=== PATIENT | male | born 1985 | race Caucasian/White ===

== ENCOUNTER 2018-02-24 21:37 | Inpatient (IN) | payer OTHER ==
[2018-02-24 22:20] LABS: BASO # 0.1 10^3/uL (0.0-0.2); BASO % 0.6 % (0.0-1.0); EOS % 0.1 % (0.0-3.0); HEMATOCRIT 39.9 % (42.0-52.0); HEMOGLOBIN 13.7 g/dl (13.5-17.5); IMMATURE GRANULOCYTE % 0.2 % (0-3.0); LYMPH # 1.2 10^3/uL (1.5-4.5); LYMPH % 15.1 % (24.0-44.0); MEAN CORPUSCULAR HEMOGLOBIN 30.9 pg (27.0-33.0); MEAN CORPUSCULAR HGB CONC 34.3 g/dl (32.0-36.5); MEAN CORPUSCULAR VOLUME 89.9 fl (80.0-96.0); MONO # 0.7 10^3/uL (0.0-0.8); MONO % 8.4 % (0.0-5.0); NEUTROPHILS # 6.2 10^3/uL (1.8-7.7); NEUTROPHILS % 75.6 % (36.0-66.0); PLATELET COUNT, AUTOMATED 179 10^3/uL (150-450); RED BLOOD COUNT 4.44 10^6/uL (4.30-6.10); RED CELL DISTRIBUTION WIDTH 12.3 % (11.5-14.5); WHITE BLOOD COUNT 8.2 10^3/uL (4.0-10.0)
[2018-02-24] MEDS: ONDANSETRON 4MG/2ML VIAL (J2405) IV (22:26)
[2018-02-24] MEDS: NS 1,000 ML IV (22:26)
[2018-02-24] MEDS: MORPHINE 2 MG/ML 1ML SYRINGE (J2270) IV (22:27)
[2018-02-24 22:53] LABS: ALBUMIN 4.2 GM/DL (3.2-5.2); ALKALINE PHOSPHATASE 106 U/L (45-117); ALT/SGPT 38 U/L (12-78); AMYLASE 246 U/L (25-115); ANION GAP 7 MEQ/L (8-16); AST/SGOT 44 U/L (7-37); BILIRUBIN,DIRECT < 0.1 MG/DL (0.0-0.2); BILIRUBIN,TOTAL 0.3 MG/DL (0.2-1.0); BLOOD UREA NITROGEN 7 MG/DL (7-18); CALCIUM LEVEL 8.3 MG/DL (8.5-10.1); CARBON DIOXIDE LEVEL 34 MEQ/L (21-32); CHLORIDE LEVEL 99 MEQ/L (98-107); CREATININE FOR GFR 0.66 MG/DL (0.70-1.30); ETHYL ALCOHOL (ETHANOL) 0.227 % (0.000-0.010); GLOMERULAR FILTRATION RATE > 60.0 (>60); GLUCOSE, FASTING 123 MG/DL (70-100); LIPASE 1384 U/L (73-393); SODIUM LEVEL 140 MEQ/L (136-145); TOTAL PROTEIN 7.7 GM/DL (6.4-8.2)
[2018-02-24] MEDS: OXAZEPAM 15 MG CAP PO (23:35)
[2018-02-24] MEDS: LORazepam 2 MG/ML VIAL (J2060) IV (23:35)
[2018-02-25] MEDS: NS 1,000 ML IV ×5 (00:12→21:48)
[2018-02-25] MEDS: MORPHINE 2 MG/ML 1ML SYRINGE (J2270) IV (00:19)
[2018-02-25] MEDS ORDERED: PERCOCET 5MG/325MG TAB PO (00:45)
[2018-02-25] MEDS ORDERED: ACETAMINOPHEN TAB 650MG DOSE (2X325MG) PO (00:45)
[2018-02-25] MEDS: MORPHINE 4 MG/ML 1ML VIAL/SYRINGE (J2270) IV ×4 (02:27→22:12)
[2018-02-25] MEDS: LORazepam 2 MG/ML VIAL (J2060) IV (06:01)
[2018-02-25 06:03] LABS: RED BLOOD COUNT 3.83 10^6/uL (4.30-6.10); WHITE BLOOD COUNT 5.6 10^3/uL (4.0-10.0)
[2018-02-25 06:04] LABS: BASO # 0.1 10^3/uL (0.0-0.2); BASO % 1.1 % (0.0-1.0); EOS # 0.1 10^3/uL (0.0-0.50); EOS % 1.6 % (0.0-3.0); HEMATOCRIT 34.7 % (42.0-52.0); IMMATURE GRANULOCYTE % 0.2 % (0-3.0); LYMPH # 1.7 10^3/uL (1.5-4.5); LYMPH % 29.5 % (24.0-44.0); MEAN CORPUSCULAR HEMOGLOBIN 31.3 pg (27.0-33.0); MEAN CORPUSCULAR HGB CONC 34.6 g/dl (32.0-36.5); MEAN CORPUSCULAR VOLUME 90.6 fl (80.0-96.0); MONO # 0.6 10^3/uL (0.0-0.8); NEUTROPHILS # 3.2 10^3/uL (1.8-7.7); NEUTROPHILS % 56.6 % (36.0-66.0); PLATELET COUNT, AUTOMATED 153 10^3/uL (150-450); RED CELL DISTRIBUTION WIDTH 12.4 % (11.5-14.5)
[2018-02-25 06:37] LABS: ANION GAP 7 MEQ/L (8-16); BLOOD UREA NITROGEN 5 MG/DL (7-18); CALCIUM LEVEL 7.8 MG/DL (8.5-10.1); CARBON DIOXIDE LEVEL 31 MEQ/L (21-32); CHLORIDE LEVEL 106 MEQ/L (98-107); GLOMERULAR FILTRATION RATE > 60.0 (>60); GLUCOSE, FASTING 77 MG/DL (70-100); LIPASE 680 U/L (73-393); POTASSIUM SERUM 4.2 MEQ/L (3.5-5.1); SODIUM LEVEL 144 MEQ/L (136-145)
[2018-02-25] MEDS: OXAZEPAM 15 MG CAP PO ×3 (07:02→18:03)
[2018-02-25] MEDS: PANTOPRAZOLE 40MG INJ (PROTONIX) (C9113) IV (09:56)
[2018-02-25] MEDS: ENOXAPARIN 40 MG/0.4 ML SYRINGE (J1650) SC (09:57)
[2018-02-26] MEDS: OXAZEPAM 15 MG CAP PO ×4 (00:08→17:25)
[2018-02-26] MEDS: MORPHINE 4 MG/ML 1ML VIAL/SYRINGE (J2270) IV ×3 (00:30→12:16)
[2018-02-26 05:50] LABS: HEMATOCRIT 39.4 % (42.0-52.0); HEMOGLOBIN 13.5 g/dl (13.5-17.5); MEAN CORPUSCULAR HGB CONC 34.3 g/dl (32.0-36.5); MEAN CORPUSCULAR VOLUME 90.6 fl (80.0-96.0); PLATELET COUNT, AUTOMATED 183 10^3/uL (150-450); RED BLOOD COUNT 4.35 10^6/uL (4.30-6.10); WHITE BLOOD COUNT 4.9 10^3/uL (4.0-10.0)
[2018-02-26] MEDS: NS 1,000 ML IV ×3 (05:59→18:19)
[2018-02-26 06:08] LABS: ALBUMIN 3.5 GM/DL (3.2-5.2); ALBUMIN/GLOBULIN RATIO 1.03 (1.00-1.93); ALKALINE PHOSPHATASE 83 U/L (45-117); ALT/SGPT 32 U/L (12-78); ANION GAP 5 MEQ/L (8-16); AST/SGOT 38 U/L (7-37); BILIRUBIN,TOTAL 0.8 MG/DL (0.2-1.0); BLOOD UREA NITROGEN 2 MG/DL (7-18); CALCIUM LEVEL 8.7 MG/DL (8.5-10.1); CARBON DIOXIDE LEVEL 35 MEQ/L (21-32); CHLORIDE LEVEL 104 MEQ/L (98-107); CREATININE FOR GFR 0.62 MG/DL (0.70-1.30); GLOMERULAR FILTRATION RATE > 60.0 (>60); GLUCOSE, FASTING 85 MG/DL (70-100); SODIUM LEVEL 144 MEQ/L (136-145); TOTAL PROTEIN 6.9 GM/DL (6.4-8.2)
[2018-02-26 07:12] LABS: LIPASE 330 U/L (73-393)
[2018-02-26] MEDS: ENOXAPARIN 40 MG/0.4 ML SYRINGE (J1650) SC (09:48)
[2018-02-26] MEDS: PANTOPRAZOLE 40MG INJ (PROTONIX) (C9113) IV (09:49)
[2018-02-27] MEDS: OXAZEPAM 15 MG CAP PO ×4 (00:17→21:10)
[2018-02-27] MEDS: NS 1,000 ML IV ×2 (00:18→06:17)
[2018-02-27 05:59] LABS: HEMATOCRIT 36.6 % (42.0-52.0); HEMOGLOBIN 12.7 g/dl (13.5-17.5); MEAN CORPUSCULAR HEMOGLOBIN 31.4 pg (27.0-33.0); MEAN CORPUSCULAR HGB CONC 34.7 g/dl (32.0-36.5); MEAN CORPUSCULAR VOLUME 90.6 fl (80.0-96.0); PLATELET COUNT, AUTOMATED 186 10^3/uL (150-450); RED BLOOD COUNT 4.04 10^6/uL (4.30-6.10); RED CELL DISTRIBUTION WIDTH 11.9 % (11.5-14.5); WHITE BLOOD COUNT 5.1 10^3/uL (4.0-10.0)
[2018-02-27 06:23] LABS: ALBUMIN 3.2 GM/DL (3.2-5.2); ALKALINE PHOSPHATASE 103 U/L (45-117); ALT/SGPT 32 U/L (12-78); ANION GAP 5 MEQ/L (8-16); AST/SGOT 39 U/L (7-37); BILIRUBIN,TOTAL 0.3 MG/DL (0.2-1.0); BLOOD UREA NITROGEN 2 MG/DL (7-18); CALCIUM LEVEL 8.4 MG/DL (8.5-10.1); CARBON DIOXIDE LEVEL 34 MEQ/L (21-32); CHLORIDE LEVEL 107 MEQ/L (98-107); CREATININE FOR GFR 0.58 MG/DL (0.70-1.30); GLOMERULAR FILTRATION RATE > 60.0 (>60); GLUCOSE, FASTING 108 MG/DL (70-100); POTASSIUM SERUM 3.9 MEQ/L (3.5-5.1); SODIUM LEVEL 146 MEQ/L (136-145); TOTAL PROTEIN 6.4 GM/DL (6.4-8.2)
[2018-02-27] MEDS: PANTOPRAZOLE 40MG INJ (PROTONIX) (C9113) IV (08:15)
[2018-02-27] MEDS: ENOXAPARIN 40 MG/0.4 ML SYRINGE (J1650) SC (08:16)
[2018-02-27] MEDS: ONDANSETRON 4MG/2ML VIAL (J2405) IV (11:27)
[2018-02-28 05:47] LABS: HEMATOCRIT 38.3 % (42.0-52.0); HEMOGLOBIN 13.1 g/dl (13.5-17.5); MEAN CORPUSCULAR HGB CONC 34.2 g/dl (32.0-36.5); MEAN CORPUSCULAR VOLUME 90.8 fl (80.0-96.0); PLATELET COUNT, AUTOMATED 209 10^3/uL (150-450); RED BLOOD COUNT 4.22 10^6/uL (4.30-6.10); WHITE BLOOD COUNT 5.2 10^3/uL (4.0-10.0)
[2018-02-28] MEDS: OXAZEPAM 15 MG CAP PO (06:05)
[2018-02-28 06:07] LABS: ALBUMIN 3.4 GM/DL (3.2-5.2); ALBUMIN/GLOBULIN RATIO 0.94 (1.00-1.93); ALKALINE PHOSPHATASE 112 U/L (45-117); ALT/SGPT 32 U/L (12-78); ANION GAP 7 MEQ/L (8-16); AST/SGOT 32 U/L (7-37); BILIRUBIN,TOTAL 0.2 MG/DL (0.2-1.0); BLOOD UREA NITROGEN 5 MG/DL (7-18); CALCIUM LEVEL 8.1 MG/DL (8.5-10.1); CARBON DIOXIDE LEVEL 34 MEQ/L (21-32); CHLORIDE LEVEL 103 MEQ/L (98-107); CREATININE FOR GFR 0.57 MG/DL (0.70-1.30); GLOMERULAR FILTRATION RATE > 60.0 (>60); GLUCOSE, FASTING 90 MG/DL (70-100); POTASSIUM SERUM 3.8 MEQ/L (3.5-5.1); SODIUM LEVEL 144 MEQ/L (136-145)
[2018-02-28] MEDS: ENOXAPARIN 40 MG/0.4 ML SYRINGE (J1650) SC (09:01)
== END 2018-02-28 13:00 | disposition home or self-care (01) | DRG 282 ==
LOC: M ED INP 02-25 00:33 → M MSPAV 02-25 01:16 → M ED 21:37
DX: K85.20 Alcohol induced acute pancreatitis without necrosis or infection (principal); F41.9 Anxiety disorder, unspecified; F10.20 Alcohol dependence, uncomplicated; F17.220 Nicotine dependence, chewing tobacco, uncomplicated; Z88.1 Allergy status to other antibiotic agents; Z79.899 Other long term (current) drug therapy

== ENCOUNTER → 2018-10-29 | Outpatient (CLI) | payer BC ==
[~2018-10-29] MED LIST: FOLI1TAB11 PO; HYDR-3363 PO; MULT1CHW39 PO; OXAZ10CA3 PO; THIA100TA PO; VENL37.598 PO; VENL75CA2 PO
--- NOTE | 2018-11-08 00:40 | ECWPNPC ---
PATIENT NAME: MAYNOR VILLALTA : 1985 GENDER: MALE VISIT DATE: 10/29/2018 DISCHARGE DATE: 10/29/18 1524 VISIT LOCKED DATE TIME: PHYSICIAN: YONIS JOLLEY MD RESOURCE: YONIS JOLLEY MD REASON FOR APPOINTMENT 1. CARPAL TUNNEL SYNDROME HISTORY OF PRESENT ILLNESS FALL RISK SCREENING: SCREENING : NO FALLS IN THE PAST YEAR. PAIN SCREENING: PATIENT HAS A COMPLAINT OF ACUTE OR CHRONIC PAIN :YES 33 YEAR OLD MALE PATIENT WITH A HISTORY OF CARPAL TUNNEL SYNDROME. THE PATIENT DESCRIBES THE PAIN SHARP, STABBING, SHOOTING, AND CONTINUOUS WITH A PAIN SCORE OF 8-10/10 DEPENDING ON PHYSICAL ACTIVITY AND TIME OF DAY. THE PATIENT SAYS THAT HE HAS HAD THIS PAIN FOR ABOUT 6 MONTHS AND IT IS OVER HIS RIGHT AND LEFT WRISTS AND HANDS. THE PATIENT SAYS THAT HIS LEFT WRIST IS WORSE. THE PATIENT STATES THAT HIS PAIN IS MAINLY IN THE MORNING AND AT NIGHT WHEN HE IS TRYING TO SLEEP. THE PATIENT SAYS THAT THE PAIN DECREASES THE DAY GOES ON. THE PATIENT SAYS THAT HE HAS DIFFICULTY WORKING AND GRIPPING THINGS DUE TO THIS PAIN. THE PATIENT IS CURRENTLY USING GABAPENTIN 100MG TO AID IN PAIN RELIEF. PATIENT DENIES UNEXPLAINABLE WEIGHT LOSS, FEVER, CHILLS, NEW CHANGES ON HIS URINARY OR BOWEL CONTROL. CURRENT MEDICATIONS TAKING GABAPENTIN 100 MG CAPSULE 1 CAPSULE ORALLY THREE TIMES A DAY TAKING VENLAFAXINE HCL ER 75 MG CAPSULE EXTENDED RELEASE 24 HOUR 1 CAPSULE WITH FOOD ORALLY BID TAKING OMEPRAZOLE 20 MG CAPSULE DELAYED RELEASE 1 CAPSULE ORALLY ONCE A DAY MEDICATION LIST REVIEWED AND RECONCILED WITH THE PATIENT PAST MEDICAL HISTORY ANXIETY PANIC DISORDER WITH AGORAPHOBIA BILATERAL CARPAL TUNNEL SYNDROME ALLERGIES CEFACLOR: URTICARIA AUGMENTIN: URTICARIA NUTS AND CERTAIN FRUITS: MOUTH SWELLING SURGICAL HISTORY DENIES PAST SURGICAL HISTORY FAMILY HISTORY MOTHER: DIAGNOSED WITH HYPERTENSION PATERNAL GRAND FATHER: DIAGNOSED WITH HEART DISEASE SOCIAL HISTORY GENERAL: TOBACCO USE ARE YOU A:USES TOBACCO IN OTHER FORMS SMOKELESS TOBACCO OCCASSIONALLY SMOKING CESSATION INFORMATION GIVEN10/29/2018 ALCOHOL SCREENING DID YOU HAVE A DRINK CONTAINING ALCOHOL IN THE PAST YEAR?YES HOW OFTEN DID YOU HAVE A DRINK CONTAINING ALCOHOL IN THE PAST YEAR?TWO TO FOUR TIMES A MONTH (2 POINTS) HOW MANY DRINKS DID YOU HAVE ON A TYPICAL DAY WHEN YOU WERE DRINKING IN THE PAST YEAR?1 OR 2 (0 POINTS) HOW OFTEN DID YOU HAVE SIX OR MORE DRINKS ON ONE OCCASION IN THE PAST YEAR?LESS THAN MONTHLY (1 POINT) POINTS3 INTERPRETATIONNEGATIVE RECREATIONAL DRUG USE DRUG USE?NO CAFFEINE CAFFEINE USE?NO YAZIDI [id number] NONE LANGUAGE LANGUAGES SPOKEN:PASHTO LEARNING BARRIERS / SPECIAL NEEDS BARRIERS TO LEARNING?YES HEARING IMPAIRED?YES VISION IMPAIRED?YES COGNITIVELY IMPAIRED?NO READINESS TO LEARN?YES PAIN CLINIC PFS, CLERGY, PUBLIC HEALTH REFERRALS HAS THE PATIENT BEEN EDUCATED REGARDING HIS/HER PLAN OF CARE?YES HAS THE PATIENT BEEN EDUCATED REGARDING PAIN, THE RISK FOR PAIN, THE IMPORTANCE OF EFFECTIVE PAIN MANAGEMENT, AND THE PAIN ASSESSMENT PROCESS?YES ADVANCE DIRECTIVE ADVANCE DIRECTIVE DISCUSSED WITH PATIENT:YES HCP INFORMATION GIVEN. ASSISTANCE WITH FORM OFFERED, PT DECLINES. 10/29/18 BV REVEIWED WITH PT 10/29/18 1340 BV. HOSPITALIZATION/MAJOR DIAGNOSTIC PROCEDURE DENIES PAST HOSPITALIZATION REVIEW OF SYSTEMS REVIEWED BY: PROVIDER: YONIS JOLLEY MD . CONSTITUTIONAL: ANY CHANGE IN YOUR MEDICAL CONDITION? NO . CHILLS NO . FEVER NO . INFECTION: DO YOU HAVE NEW INFECTIONS? NO . DO YOU HAVE HISTORY OF MRSA? NO . MUSCULOSKELETAL: ANY NEW PATTERNS OF PAIN OR NUMBNESS? NO . SYTEMIC LUPUS NO . GASTROENTEROLOGY: ANY NEW CHANGE IN BOWEL CONTROL? NO . BARRETTS ESOPHAGUS NO . CIRRHOSIS NO . HEPATITIS NO . LIVER FAILURE NO . ACID REFLUX YES . UNEXPLAINED WEIGHT LOSS NO . GENITOURINARY: ANY NEW CHANGE IN BLADDER CONTROL? NO . IS THERE A CHANCE YOU COULD BE ? NO . HEMATOLOGY/LYMPH: DO YOU TAKE ANY BLOOD THINNERS? (FOR EXAMPLE- COUMADIN, PLAVIX, AGGRENOX, PLATEL, PRADAXA, OR XARELTO) NO . WHEN WAS YOUR LAST DOSE? DATE: TIME: . LOW PLATELET COUNT NO . SICKLE CELL DISEASE NO . VON WILLIEBRANDS NO . FACTOR V LEIDEN NO . THALLASEMIA NO . ANEMIA NO . EASY BRUISING NO . NEUROLOGY: HAVE YOU FALLEN IN THE PAST 12 MONTHS? NO . ANY NEW EXTREMITY NUMBNESS OR WEAKNESS? NO . HEAD INJURY NO . DEMENTIA NO . CEREBRAL PALSY NO . MULTIPLE SCLEROSIS NO . DIZZINESS NO . HEADACHE NO . STROKES NO . VERTIGO NO . CARDIOLOGY: DO YOU HAVE A PACEMAKER OR DEFIBRILLATOR? NO . ANGINA NO . HEART ATTACK NO . HEART SURGERY NO . CONGESTIVE HEART FAILURE/FLUID OVERLOAD NO . CHEST PAIN NO . HIGH BLOOD PRESSURE NO . IRREGULAR HEART BEAT NO . RESPIRATORY: HAVE YOU BEEN SICK IN THE PAST WEEK? NO . FEVER NO . FLU LIKE SYMPTOMS? NO . CPAP NO . BYPAP NO . ASTHMA NO . EMPHYSEMA NO . CHRONIC LUNG DISEASES NO . SHORTNESS OF BREATH ON EXERTION NO . COUGH NO . SNORING NO . INTEGUMENTARY: DO YOU HAVE ANY RASHES OR OPEN SORES? NO . ALLERGIC/IMMUNO: ARE YOU ALLERGIC TO IV DYE? NO . ANY NEW ALLERGIES? NO . PSYCHIATRIC: DO YOU HAVE THOUGHTS OF HURTING YOURSELF OR SOMEONE ELSE? NO . ARE YOU ABUSED, NEGLECTED, OR IN AN UNSAFE ENVIRONMENT? NO . ENDOCRINOLOGY: ARE YOU DIABETIC? NO . THYROID DISORDER NO . OTHER: DO YOU NEED ANY PRESCRIPTIONS? NO . IF YES, PLEASE LIST: ____ . ANY NEW PROBLEMS WITH YOUR MEDICATIONS? NO . WHEN DID YOU LAST EAT? ____ . WHEN DID YOU LAST DRINK? ____ . WHAT DID YOU LAST DRINK? ____ . NAME OF PERSON DRIVING YOU HOME? ____ . DO YOU HAVE ANY OTHER QUESTIONS OR CONCERNS NO . VITAL SIGNS WT 139.2 LBS, HT 56 IN, BMI 31.20 INDEX, BP 134/77 MM HG, HR 104 /MIN, RR 18 /MIN, TEMP 97.2 F, OXYGEN SAT % 95%, NA INITIALS AW 1331, REVIEWED BY: BV. EXAMINATION GENERAL EXAMINATION: PATIENT IS ALERT O X 3 AND COOPERATIVE. LUNGS CLEAR, TO AUSCULTATION. HEART: NO MURMURS OR GALLOPS; FACIAL CRANIAL NERVES ARE GROSSLY NORMAL. GOOD SYMMETRY OF FACIAL MUSCLE MOVEMENT. NORMAL VISUAL RITTER. HAND PALM AND BACK FORGER OVER THE LEFT SIDE IS REDUCED. ABDUCTION OF FINGERS OVER THE LEFT SIDE IS REDUCED. ASSESSMENTS BILATERAL CARPAL TUNNEL SYNDROME - G56.03 (PRIMARY) TREATMENT BILATERAL CARPAL TUNNEL SYNDROME CLINICAL NOTES: WE DISCUSSED SEVERAL ISSUES WITH MR. VILLALTA'S PAIN MANAGEMENT CASE. THE PATIENT WILL CONSIDER SPEAKING WITH HIS SURGEON ABOUT HAVING AN INJECTION TO AID IN PAIN RELIEF UNTIL HE IS ABLE TO HAVE SURGERY. I WILL INCREASE THE PATIENT'S GABAPENTIN TO 300MG AT NIGHT. I WOULD LIKE THE PATIENT TO START USING IBUPROFEN AND VOLTAREN GEL TO HELP GET HIS PAIN UNDER CONTROL SO HE IS ABLE TO WORK. THE PATIENT WILL CONSIDER SWITCHING VENLAFAXINE TO CYMBALTA. THE PATIENT WILL FOLLOW UP IN 2 MONTHS. INSTRUCTIONS WERE GIVEN, QUESTIONS WERE ANSWERED, PATIENT REPORTS UNDERSTANDING AND AGREES WITH THE PLAN. IHARSHAD, DOCUMENTED THE ABOVE INFORMATION ACTING A SCRIBE FOR DR. JOLLEY. I HAVE REVIEWED THE ABOVE DOCUMENT, WRITTEN BY HARSHAD ALBARRAN AND I VERIFY THAT IT IS ACCURATE. DEAR DR. KATHLEEN:THANK YOU FOR YOUR KIND REFERRAL OF MR. VILLALTA. IF YOU WANT TO DISCUSS HIS CASE WITH ME PLEASE CALL ME AT THE PAIN CENTER AT [phone]. SINCERELY,YONIS JOLLEY, MDPAIN MEDICINE. OTHERS START IBUPROFEN TABLET, 800 MG, 1 TABLET WITH FOOD OR MILK NEEDED, ORALLY, EVERY 8 HOURS NEEDED FOR PAIN MDD3, 30 DAY(S), 65, REFILLS 1 START GABAPENTIN CAPSULE, 300 MG, 1 CAPSULE, ORALLY FOR PAIN, BEFORE BEDTIME, 30 DAY(S), 30, REFILLS 1 START VOLTAREN GEL, 1 %, DIRECTED, TRANSDERMAL, FOUR TIMES DAILY NEEDED, 30 DAY(S), 1, REFILLS 2 PREVENTIVE MEDICINE PAIN CLINIC TEACHING: MEDICATIONS PT GIVEN WRITTEN AND VERBAL EDUCATION ON STARTING IBUPROFEN AND DICLOFENEC. PT VERBALIZES UNDERSTANDING OF ALL EDUCATION. PROCEDURE CODES FA211 ESTABILISHED PATIENT [facility] FACILITY CHARGE [id number] CURRENT MEDS W/DOSAGES DOCUMENTED G8730 PAIN ASSESS POS TOOL F/U PLAN DOC DISPOSITION & COMMUNICATION FOLLOW UP 6-8 WEEKS (REASON: CARPAL TUNNEL) ELECTRONICALLY SIGNED BY YONIS JOLLEY MD, MD ON 11/07/2018 AT 08:52 AM EDT DISCLAIMER : THIS IS A VISIT SUMMARY EXTRACTED FROM THE [employer] CHART. IT IS NOT A COPY OF THE [employer] PROGRESS NOTE. MTDD
== END ==
LOC: M PAIN 13:00
PROVIDERS: ATTEND Anesthesiology
DX: G56.03 Carpal tunnel syndrome, bilateral upper limbs (principal); Z86.59 Personal history of other mental and behavioral disorders; K21.9 Gastro-esophageal reflux disease without esophagitis; F17.290 Nicotine dependence, other tobacco product, uncomplicated; Z88.1 Allergy status to other antibiotic agents; Z91.010 Allergy to peanuts; Z91.018 Allergy to other foods; Z79.899 Other long term (current) drug therapy

== ENCOUNTER 2019-03-24 03:25 | Emergency (ER) | payer BC ==
[~2019-03-24] VITALS: Ht 167.6 cm; Wt 61.4 kg
[~2019-03-24 03:25] MED LIST changes: -MULT1CHW39 PO; +MULT200T7 PO
[2019-03-24] MEDS ORDERED: VENL150T24 (03:32)
[2019-03-24] MEDS ORDERED: GABA-1171 (03:32)
[2019-03-24] MEDS ORDERED: OMEP-218 (03:32)
[2019-03-24] MEDS ORDERED: ALPR0.25 (03:32)
[2019-03-24] MEDS ORDERED: LORazepam 2 MG/ML VIAL (J2060) IV STA (05:10)
[2019-03-24] MEDS ORDERED: OXAZEPAM 15 MG CAP PO ONE (05:15)
[2019-03-24] MEDS ORDERED: NS 1,000 ML IV ONE (05:15)
[2019-03-24 06:07] LABS: BASO # 0.1 10^3/uL (0.0-0.2); BASO % 0.8 % (0.0-1.0); EOS % 0.3 % (0.0-3.0); HEMATOCRIT 40.9 % (42.0-52.0); HEMOGLOBIN 14.2 g/dl (13.5-17.5); LYMPH # 1.8 10^3/uL (1.5-4.5); LYMPH % 27.3 % (24.0-44.0); MEAN CORPUSCULAR HEMOGLOBIN 30.9 pg (27.0-33.0); MEAN CORPUSCULAR HGB CONC 34.7 g/dl (32.0-36.5); MEAN CORPUSCULAR VOLUME 89.1 fl (80.0-96.0); MONO # 0.9 10^3/uL (0.0-0.8); MONO % 13.5 % (0.0-5.0); NEUTROPHILS # 3.8 10^3/uL (1.8-7.7); NEUTROPHILS % 57.9 % (36.0-66.0); PLATELET COUNT, AUTOMATED 261 10^3/uL (150-450); RED BLOOD COUNT 4.59 10^6/uL (4.30-6.10); WHITE BLOOD COUNT 6.5 10^3/uL (4.0-10.0)
[2019-03-24 06:27] LABS: BLOOD UREA NITROGEN 6 MG/DL (7-18); CARBON DIOXIDE LEVEL 29 MEQ/L (21-32); CHLORIDE LEVEL 100 MEQ/L (98-107); ETHYL ALCOHOL (ETHANOL) 0.168 % (0.000-0.010); GLOMERULAR FILTRATION RATE > 60.0 (>60); GLUCOSE, FASTING 114 MG/DL (70-100); LIPASE 104 U/L (73-393); POTASSIUM SERUM 3.7 MEQ/L (3.5-5.1); SODIUM LEVEL 137 MEQ/L (136-145)
[2019-03-24 08:37] VITALS: BP 114/61
== END 2019-03-24 08:56 | disposition home or self-care (01) ==
LOC: M ED 03:25
DX: F10.120 Alcohol abuse with intoxication, uncomplicated (principal); R00.0 Tachycardia, unspecified; Z79.899 Other long term (current) drug therapy; Z88.0 Allergy status to penicillin; Z88.1 Allergy status to other antibiotic agents
CPT/HCPCS: 80048; 83690; 85025; 96374; 99285; G0480; J2060